=== PATIENT | female | born 1950 | race Two or more races ===

== ENCOUNTER 2017-09-20 10:24 | Inpatient (IN) | payer MEDICARE, MEDICAID ==
[~2017-09-20] VITALS: Ht 157.5 cm; Wt 79.4 kg
[2017-09-20] MEDS ORDERED: LOSARTAN (10:37)
[2017-09-20] MEDS ORDERED: TYLENOL (10:37)
[2017-09-20] MEDS ORDERED: METOPROLOL (10:37)
[2017-09-20] MEDS ORDERED: ASPI81TA31 PO (10:37)
[2017-09-20 11:01] LABS: BASOPHILS % (AUTO) 0.5 % (0.0-2.0); EOSINOPHILS # (AUTO) 0.1 K/uL (0.0-0.7); EOSINOPHILS % (AUTO) 0.9 % (0.0-7.0); HEMATOCRIT 37.8 % (31.2-41.9); HEMOGLOBIN 12.9 g/dL (10.9-14.3); LYMPHOCYTES # (AUTO) 1.5 K/uL (20.0-40.0); LYMPHOCYTES % (AUTO) 19.2 % (20.5-51.5); MEAN CORPUSCULAR HEMOGLOBIN 30.1 uug (24.7-32.8); MEAN CORPUSCULAR HGB CONC 34 g/dL (32.3-35.6); MONOCYTES # (AUTO) 0.4 K/uL (2.0-10.0); MONOCYTES % (AUTO) 5.6 % (0.0-11.0); NEUTROPHILS # (AUTO) 5.6 K/uL (1.8-8.9); NEUTROPHILS % (AUTO) 73.8 % (38.5-71.5); PLATELET COUNT (AUTO) 250 K/uL (179-408); WHITE BLOOD COUNT (AUTO) 7.6 K/uL (3.8-11.8)
[2017-09-20 11:10] LABS: CREATININE 0.6 mg/dL (0.6-1.3); POTASSIUM 3.5 mmol/L (3.5-5.1)
[2017-09-20 11:16] LABS: BILIRUBIN,TOTAL 0.7 mg/dL (0.2-1.0); MAGNESIUM 1.8 mg/dL (1.8-2.4); TOTAL PROTEIN, SERUM 6.4 g/dL (6.4-8.2)
[2017-09-20 11:19] LABS: *BILIRUBIN,URIN NEGATIVE (NEGATIVE); *BLOOD, URINE Trace-intact (NEGATIVE); *CLARITY,URINE SLIGHTLY CLOUDY (CLEAR); *COLOR,URINE LIGHT YELLOW (YELLOW); *KETONES,URINE NEGATIVE (NEGATIVE); *PROTEIN,URINE NEGATIVE (NEGATIVE); *UROBILINOGEN,URINE 0.2 E.U./dl (NORMAL); LEUKOCYTE ESTERASE ,URINE 2+ (NEGATIVE); NITRITE, URINE NEGATIVE (NEGATIVE); UGLUCOSE NEGATIVE (NEGATIVE)
[2017-09-20 11:26] LABS: BACTERIA,URINE FEW /HPF (NONE SEEN); RBC,URINE 0-3 /HPF (0-3); SQUAMOUS EPITHELIAL CELL,UR MODERATE /HPF (NONE SEEN); WBC,URINE 0-3 /HPF (0-3)
--- NOTE | 2017-09-20 14:45 | NUR ---
mse completed, sbar report to nicki mccann, mrsa nares ordered-sent, belongings list done, ot to [id number] mitchell/monitor.
--- NOTE | 2017-09-20 15:00 | NUR ---
Received patient from ER via gurney. Patient is alert, in no distress. Right arm bandage/dressing noted, pt/family stated patient supposed to have a procedure for right wrist fracture/shattered/collapse. Patient admitted to tele under the care of Dr. Whalen. Dx: Unstable Angina Pectoris. Belonging list done. Admission process and care plan initiated. Patient no c/o of chest pain, s/o of right wrist discomfort. MD notified regarding new admission orders.
[2017-09-20 15:16] VITALS: BP 136/62
[2017-09-20] MEDS ORDERED: MORPHINE SULFATE 2 MG/1 ML DISP.SYRIN IV PRN (16:30)
[2017-09-20] MEDS ORDERED: NITROGLYCERIN IV 250 ML IV PRN (16:30)
[2017-09-20] MEDS ORDERED: ONDANSETRON 4 MG/2 ML VIAL IV PRN (16:30)
[2017-09-20] MEDS ORDERED: MORPHINE SULFATE 4 MG/1 ML DISP.SYRIN IV PRN (16:45)
[2017-09-20] MEDS ORDERED: METOPROLOL TARTRATE 50 MG TABLET PO SCH (17:00)
[2017-09-20] MEDS: ACETAMINOPHEN 325 MG TABLET PO PRN (17:34)
[2017-09-20] MEDS ORDERED: NITROGLYCERIN 0.4 MG/TAB BOTTLE SL PRN (18:00)
[2017-09-20] MEDS: METOPROLOL TARTRATE 25 MG TABLET PO SCH (18:11)
[2017-09-20 19:00] VITALS: BP 142/83
--- NOTE | 2017-09-20 22:00 | NUR ---
Noted language barrier with pt mostly communicating in Thai. Alert, oriented, pleasant and cooperative. Denies pain/discomfort. Right wrist/arm splint dry and intact and up elevated on pillows at all times. Safety and fall precautions observed at all times. Stable rhythm. and VS. Plans of care discussed.
[2017-09-21] VITALS: BP 145/86
--- NOTE | 2017-09-21 03:45 | NUR ---
Pt has been sleeping; awakened by RUE pain. Tylenol given per request. Med not scanned due to downtime on [employer]. Denies chest pain/palpitation. Continues to tolerate well OOB-bathroom activities. Gait steady. Pt continues to sleep.
[2017-09-21 04:00] VITALS: BP 140/79
--- NOTE | 2017-09-21 06:55 | NUR ---
Restful uneventful night. Chest pain free this shift. Continues to sleep.
[2017-09-21 06:56] LABS: CREATININE 0.7 mg/dL (0.6-1.3); PHOSPHOROUS 3.8 mg/dL (2.5-4.9); POTASSIUM 3.4 mmol/L (3.5-5.1)
[2017-09-21 07:15] LABS: BASOPHILS % (AUTO) 0.6 % (0.0-2.0); EOSINOPHILS # (AUTO) 0.2 K/uL (0.0-0.7); EOSINOPHILS % (AUTO) 2.4 % (0.0-7.0); HEMATOCRIT 39.8 % (31.2-41.9); HEMOGLOBIN 13.7 g/dL (10.9-14.3); LYMPHOCYTES # (AUTO) 1.7 K/uL (20.0-40.0); MEAN CORPUSCULAR HEMOGLOBIN 30.3 uug (24.7-32.8); MEAN CORPUSCULAR HGB CONC 34 g/dL (32.3-35.6); MEAN CORPUSCULAR VOLUME 87.9 fL (75.5-95.3); MONOCYTES # (AUTO) 0.5 K/uL (2.0-10.0); MONOCYTES % (AUTO) 6.5 % (0.0-11.0); NEUTROPHILS # (AUTO) 4.8 K/uL (1.8-8.9); NEUTROPHILS % (AUTO) 66.5 % (38.5-71.5); PLATELET COUNT (AUTO) 271 K/uL (179-408); RED BLOOD CELL COUNT(AUTO) 4.53 MIL/uL (3.63-4.92); WHITE BLOOD COUNT (AUTO) 7.2 K/uL (3.8-11.8)
--- NOTE | 2017-09-21 07:34 | NUR ---
Awake, alert, oriented x 4, slovak speaking understands simple [place]. Right hand on splint with dressing dry and intact, elevated. Denies chest pain
[2017-09-21] MEDS ORDERED: POTASSIUM CHLORIDE 20 MEQ TAB.PRT.SR PO ONE (08:42)
[2017-09-21] MEDS: METOPROLOL TARTRATE 25 MG TABLET PO SCH (08:47)
[2017-09-21] MEDS: ACETAMINOPHEN 325 MG TABLET PO PRN ×2 (08:48→13:36)
[2017-09-21] MEDS ORDERED: ASPIRIN 81 MG TAB.CHEW PO SCH (09:00)
[2017-09-21 11:39] VITALS: BP 136/75
[2017-09-21 15:58] VITALS: BP 145/84
--- NOTE | 2017-09-21 16:37 | NUR ---
Seen by telecommunications cable jointer, Dr. Aleman, cleared for discharge. With discharge order to home. Saline lock removed. Tele removed. DC instruction given to patient/daughter, verbalized understanding. Went home per wheelchair in fair condition not in distress, afebrile
== END 2017-09-21 17:00 | disposition home or self-care (01) | DRG 311 ==
LOC: ER 10:24 → TELE 14:32
PROVIDERS: ADMIT Internal Medicine; ATTEND Internal Medicine
DX: I20.0 Unstable angina (principal); I10 Essential (primary) hypertension; M19.90 Unspecified osteoarthritis, unspecified site; Z79.82 Long term (current) use of aspirin; Z79.899 Other long term (current) drug therapy; M81.0 Age-related osteoporosis without current pathological fracture; S62.101G Fracture of unspecified carpal bone, right wrist, subsequent encounter for fracture with delayed healing; X58.XXXD Exposure to other specified factors, subsequent encounter; F41.9 Anxiety disorder, unspecified; E66.9 Obesity, unspecified; Z68.32 Body mass index [BMI] 32.0-32.9, adult; Z87.891 Personal history of nicotine dependence; Z98.890 Other specified postprocedural states
CPT/HCPCS: 36415; 70030-TC; 71045; 83735; 84100; 85025; 85610; 93005; A4663